=== PATIENT | female | born 1960 | race Caucasian/White ===

== ENCOUNTER 2017-01-18 07:20 | Emergency (ER) | payer BC ==
--- NOTE | ~2017-01-18 | CT71 ---
[facility] [place] [facility] TEXT RESULTS PATIENT: ROSA M TRENT LOCATION: [facility] : 62 UNIT #: [id number] AGE: [address]: Rhoda Fuentes SEX: F ORDER DR: [id number] [facility] [address] [place], [place] [address] [id number] E MR#: [id number] Acc #: [id number] NAME: ROSA M TRENT : 1960 SEX: F STUDY DATE/TIME: 01/18/2017 8:38 UNIT: [facility] ROOM: STUDY DESCRIPTION: CT Head Wo Contrast Attending Physician: Rhoda Fuentes P.A.-C. Ordering Physician: Rhoda Fuentes P.A.-C. Primary Care Physician: Arturo Newton Aprn MEDICAL IMAGING REPORT This report is preliminary unless electronic signature is present EXAM Head CT without contrast 01/18/2017 HISTORY Unsteady gait and syncope, lightheadedness beginning this morning. FINDINGS Multiple axial images were obtained from the skull base to vertex without intravenous contrast administration. This CT examination was performed with one or more of the following radiation dose reduction techniques: automatic exposure control, adjustment of mA and/or kV according to patient size, and iterative reconstruction. The ventricles are normal in size, shape and position. There is no evidence of midline shift. There is no mass or mass effect, hemorrhage or acute infarct. Minimal mucosal thickening is seen in the ethmoid sinuses and the right maxillary sinus. IMPRESSION 1. No acute intracranial abnormality. 2. Minimal mucosal thickening involving the ethmoid sinuses and the right maxillary sinus. Dictated by... Anastacio James M.D. THIS IS AN ELECTRONICALLY VERIFIED REPORT Anastacio James M.D. at 01/18/2017 5:06 PM JESUS/stacy TD: 01/18/2017 13:41 JOB #: [id number] [facility] [place] [facility] TEXT RESULTS PATIENT: ROSA M TRENT LOCATION: [facility] #: [id number] : 62 UNIT #: [id number] AGE: [address]: Rhoda Fuentes SEX: F ORDER DR: MEDICAL IMAGING REPORT Page 1 of 1 COPY
--- NOTE | ~2017-01-18 | CR72 ---
[facility] A Service of [facility] & [facility] RADIOLOGY TEXT RESULTS PATIENT: ROSA M TRENT LOCATION: [facility] : 62 UNIT #: [id number] AGE: [address]: Rhoda Fuentes SEX: F ORDER DR: [id number] [facility] [address] [place], [place] [address] [id number] E MR#: [id number] Acc #: [id number] NAME: ROSA M TRENT : 1960 SEX: F STUDY DATE/TIME: 01/18/2017 8:09 UNIT: [facility] ROOM: STUDY DESCRIPTION: CR Chest Single View Portable Attending Physician: Rhoda Fuentes P.A.-C. Ordering Physician: Rhoda Fuentes P.A.-C. Primary Care Physician: Arturo Newton Aprn MEDICAL IMAGING REPORT This report is preliminary unless electronic signature is present EXAM Portable chest, 01/18/2017, [facility]. HISTORY 56-year-old woman with dizziness, lightheadedness, near syncopal episodes times 4. Symptoms this a.m. Patient gives history of short of breath and seizures. COMPARISON Chest, 04/23/2008. FINDINGS AP upright portable chest demonstrates normal cardiac size and configuration. Hilar structures and mediastinal contours are preserved. Bilateral lungs are expanded and clear. IMPRESSION Negative chest. Dictated by... Flash Hager M.D. THIS IS AN ELECTRONICALLY VERIFIED REPORT Flash Hager M.D. at 01/18/2017 12:22 PM BREE/satish TD: 01/18/2017 12:09 JOB #: [id number] MEDICAL IMAGING REPORT Page 1 of 1 COPY
--- NOTE | ~2017-01-18 | EKG ---
PATIENT: ROSA M TRENT UNIT #: [id number] Ventricular Rate: 78 BPM Atrial Rate: 78 BPM P-R Interval: 146 ms QRS Duration: 96 ms Q-T Interval: 424 ms QTC Calculation(Bezet): 483 ms P [place]: 46 degrees Calculated R [place]: -8 degrees Calculated T [place]: 58 degrees Diagnosis Line: Normal sinus rhythm Diagnosis Line: Prolonged QT Diagnosis Line: Abnormal ECG Diagnosis Line: No previous ECGs available Diagnosis Line: Confirmed by FLOWER SANCHEZ MD ([id number]) on 01/18/2017 Diagnosis Line: 5:42:52 PM INTERPRETING MD: DANIEL BIRD
[~2017-01-18 07:20] MED LIST: ADVAIR 5001 DISK W/D PO; ALBUTEROL MININEB NEB; ALLEGRA PO; ALPRAZOLAM PO; ASTELIN137 MCG INH; BUSPAR PO; CELEXA PO; CLOBETASOL 0.0560 GM TOP; DESOWEN60 GM TOP; ESTRACE42.5 GM VG; FLEXERIL PO; FLONASE16 GM; LEVSIN PO; NEURONTIN PO; NEXIUM PO; NORVASC PO; REQUIP1 MG PO; SEROQUEL PO; SINGULAIR PO; SONATA PO; VAGIFEM25 MCG PO
[2017-01-18 08:08] LABS: BASOPHIL# 0.1 X10e3 (0-0.3); BASOPHIL% 1.1 % (0-2.5); EOSINOPHIL# 0.1 X10e3 (0-0.7); EOSINOPHIL% 0.6 % (0.0-7.0); HEMATOCRIT 31.9 % (35.0-45.0); HEMOGLOBIN 10.3 gm/dL (12.0-16.0); LYMPHOCYTE# 1.1 X10e3 (1.0-3.5); LYMPHOCYTE% 12.9 % (17.0-45.0); MEAN CELL VOLUME 90.3 FL (83-96); MEAN CORPUSCULAR HEMOGLOBIN 29.1 PG (28-34); MEAN CORPUSCULAR HGB CONC 32.3 g/dL (30-36); MONOCYTE# 0.8 X10e3 (0-1.0); MONOCYTE% 8.9 % (3.0-12.0); NEUTROPHIL# 6.7 X10e3 (1.5-7.1); NEUTROPHIL% 76.5 % (40-75); PLATELET COUNT 185 X10e3 (140-420); RED BLOOD COUNT 3.53 X10e (3.90-5.30); RED CELL DISTRIBUTION WIDTH 13.9 % (11.0-15.5); WHITE BLOOD COUNT 8.8 X10e3 (4.0-10.5)
[2017-01-18 08:09] LABS: DIFF IND NO
[2017-01-18 08:21] LABS: POC - CKMB <1.0 ng/mL (0.0-7.9); POC - TROPONIN <0.05 ng/mL (<=0.05)
[2017-01-18 08:47] LABS: ALBUMIN SERUM 3.5 g/dL (3.5-5.0); BILIRUBIN, DIRECT 0.1 mg/dL (0.0-0.2); BILIRUBIN,INDIRECT 0.2 mg/dL (0.0-0.9); BILIRUBIN,TOTAL 0.3 mg/dL (0.2-2.0); BUN/CREATININE RATIO 48.75; CALCIUM SERUM 8.5 mg/dL (8.4-10.2); CREATININE SERUM 0.8 mg/dL (0.6-1.4); GLOM FILT RATE Estimated 83.1 mL/min (>60)
[2017-01-18 09:08] LABS: URINE SOURCE CLEAN CATCH
[2017-01-18 09:15] LABS: URINE APPEARANCE CLEAR; URINE BILIRUBIN NEG (NEG); URINE BLOOD NEG (NEG); URINE COLOR YELLOW; URINE GLUCOSE NEG (NEG); URINE KETONE NEG (NEG); URINE LEUKOCYTE ESTERASE NEG (NEG); URINE NITRATE NEG (NEG); URINE PH 6.5 (5-8); URINE PROTEIN NEG (NEG); URINE SPECIFIC GRAVITY 1.018 (1.003-1.035); URINE UROBILINOGEN 0.2 MG/DL (NEG)
[2017-01-18 09:24] LABS: CULTURE INDICATED? NO
[2017-01-18 09:25] LABS: AMPHETAMINE NEG (NEG); BARBITURATES NEG (NEG); BENZODIAZEPINES NEG (NEG); COCAINE NEG (NEG); MARIJUANA NEG (NEG); OPIATES NEG (NEG); TRICYCLIC ANTIDEPRESSANTS POS (NEG); U METHADONE NEG (NEG)
[2017-01-18 09:58] LABS: POC - CKMB <1.0 ng/mL (0.0-7.9); POC - TROPONIN <0.05 ng/mL (<=0.05)
== END 2017-01-18 11:42 | disposition home or self-care (01) ==
LOC: CED 07:20
PROVIDERS: Physician Assistant
DX: E86.0 Dehydration (principal); J32.2 Chronic ethmoidal sinusitis; R42 Dizziness and giddiness; R06.02 Shortness of breath; R19.7 Diarrhea, unspecified; J45.909 Unspecified asthma, uncomplicated; F31.9 Bipolar disorder, unspecified; K21.9 Gastro-esophageal reflux disease without esophagitis; R56.9 Unspecified convulsions; Z98.51 Tubal ligation status; Z98.890 Other specified postprocedural states; Z79.899 Other long term (current) drug therapy; Z88.1 Allergy status to other antibiotic agents
CPT/HCPCS: 36415; 70450; 71010; 80048; 80076; 80307; 81003; 82553; 82947; 84484; 85025; 93005; 94640; 96361; 96374; 99285; J2930